=== PATIENT | female | born 1995 | race Caucasian/White ===

== ENCOUNTER 2016-08-05 12:53 | Emergency (ER) | payer OTHER ==
[~2016-08-05] VITALS: Wt 55.0 kg
[~2016-08-05 12:53] MED LIST: AZIT500T5 PO; DIPH25CA6 PO; HYDR-906 PO; IBUP800T25 PO; NAPR-688 PO; SILV20CR14 TOP
--- NOTE | 2016-08-05 15:33 | ERD ---
ER Documentation Chief Complaint Date/Time DATE: 08/05/16 TIME: 15:32 Chief Complaint NAUSEA AND VOMITING SINCE MONDAY. NO COMPLAINTS TODAY. NO DISTRESS HPI Patient is a 21-year-old female with asthma who presents with vomiting and nausea. She says "I just need a note to go back to work". She no longer has nausea, vomiting, or diarrhea. She did get the symptoms 2-3 days ago. She has no fevers. She does not know the name of her primary doctor. Upon review of old medical records this is the patient's third visit to the ER since 2014. ROS All systems reviewed and are negative except as per history of present illness. Medications Home Meds Active Scripts Naproxen* (Naproxen*) 500 Mg Tablet, 500 MG PO BID Y for PAIN, #20 TAB Prov:SRINI CHRISTIANSEN DO 03/15/16 Hydrocodone/Acetaminophen ([place] 5-325 Tablet) 1 Each Tablet, 1 EACH PO Q6, #5 TAB Prov:KULDIPSRINI DO 03/15/16 Azithromycin* (Azithromycin*) 500 Mg Tablet, 500 MG PO DAILY, #3 TAB Prov:SRINI CHRISTIANSEN DO 03/15/16 Ibuprofen* (Ibuprofen*) 800 Mg Tablet, 800 MG PO Q6H Y for PAIN, #30 TAB Prov:LARRY IVCENTE MD 02/23/15 Diphenhydramine Hcl (Benadryl) 25 Mg Cap, 25 MG PO TID for ALLERGIC REACTION, # 30 CAP Prov:LARRY VICENTE MD 02/23/15 Silver Sulfadiazine* (Silvadene*) 1% - 20 Gm Cream.gm., 1 APPLIC TOP TID for 7 Days, TUB Prov:LARRY VICENTE MD 02/23/15 Allergies Allergies: Coded Allergies: Penicillins (Verified Allergy, Intermediate, 02/23/15) PMhx/Soc Medical and Surgical Hx: pt denies Surgical Hx History of Surgery: No Hx Neurological Disorder: No Hx Respiratory Disorders: Yes (ASTHMA) Hx Cardiac Disorders: No Hx Psychiatric Problems: No Hx Miscellaneous Medical Probl: No Hx Alcohol Use: No Hx Substance Use: No Hx Tobacco Use: No Smoking Status: Never smoker FmHx Family History: No diabetes Physical Exam Vitals Vital Signs Date Time Temp Pulse Resp B/P Pulse Ox O2 Delivery O2 Flow Rate FiO2 08/05/16 13:09 98.8 72 20 119/83 97 Physical Exam Const: No acute distress Head: Atraumatic Eyes: Normal Conjunctiva ENT: Normal External Ears, Nose and Mouth. Neck: Full range of motion..~ No meningismus. Resp: Clear to auscultation bilaterally Cardio: Regular rate and rhythm, no murmurs Abd: Soft, non tender, non distended. Normal bowel sounds Skin: No petechiae or rashes Back: No midline or flank tenderness Ext: No cyanosis, or edema Neur: Awake and alert Psych: Normal Mood and Affect Procedures/MDM Patient is a 21-year-old female who presents well appearing. Patient needs a note for work to go back to work. She no longer has nausea, vomiting, or diarrhea. This is most likely a viral illness. She has no abdominal pain on exam. Her vital signs are normal. I believe she is cleared to go back to work. I encouraged good handwashing technique. Departure Diagnosis: Primary Impression: Well adult Additional Impression: Nausea and vomiting Vomiting type: unspecified Vomiting Intractability: non-intractable Qualified Code: R11.2 - Non-intractable vomiting with nausea, unspecified vomiting type Condition: Fair Patient Instructions: Normal Exam, (Child) (Adult) Referrals: Your doctor Additional Instructions: Call your primary care doctor TOMORROW for an appointment during the next 1 WEEK.Tell the social secretary that you were referred from this facility.See the doctor sooner or return here if your condition worsens before your appointment time. JOSE LUIS MICHAEL MD Aug 05, 2016 15:33
== END 2016-08-05 13:54 | disposition home or self-care (01) ==
LOC: FTE 12:53
DX: Z00.00 Encounter for general adult medical examination without abnormal findings (principal); J45.909 Unspecified asthma, uncomplicated
CPT/HCPCS: 99282